=== PATIENT | male | born 1955 | race Hispanic/Latino ===

== ENCOUNTER 2018-07-10 10:19 | Emergency (ER) | payer MEDICARE, MEDICAID ==
[2018-07-10 10:31] VITALS: TEMP 98.7
[2018-07-10] MEDS ORDERED: Sodium Chloride 0.9% 500 ML IV STA (11:38)
[2018-07-10] MEDS ORDERED: Sodium Chloride 0.9% 500 ML IV ONE (11:53)
[2018-07-10 12:20] LABS: BASO % 0.5 % (0.0-2.0); EOS % 0.4 % (0.0-4.0); HEMOGLOBIN 17.4 g/dL (12.0-18.0); LYMPH # 1.6 K/uL (1.0-4.3); LYMPH % 21.4 % (20.0-40.0); MEAN CELL VOLUME 89.1 fL (80.0-94.0); MEAN CORPUSCULAR HEMOGLOBIN 31.9 pg (27.0-31.0); MEAN CORPUSCULAR HGB CONC 35.8 g/dL (33.0-37.0); MEAN PLATELET VOLUME 7.1 fL (7.2-11.7); MONO # 0.6 K/uL (0.0-0.8); MONO % 8.8 % (0.0-10.0); NEUT % 68.9 % (50.0-75.0); NRBC % 0.3 % (0.0-2.0); RBC 5.47 Mil/uL (4.40-5.90); RED CELL DISTRIBUTION WIDTH 12.9 % (11.5-14.5); WHITE BLOOD COUNT 7.3 K/uL (4.8-10.8)
[2018-07-10 12:21] LABS: URINE BILIRUBIN NEGATIVE (NEGATIVE); URINE BLOOD NEGATIVE (NEGATIVE); URINE CLARITY Clear (Clear); URINE COLOR Yellow (YELLOW); URINE GLUCOSE (UA) 2+ mg/dL (Normal); URINE LEUKOCYTE ESTERASE NEG Leu/uL (Negative); URINE PROTEIN NEGATIVE (NEGATIVE); URINE UROBILINOGEN NORMAL mg/dL (0.2-1.0)
[2018-07-10 12:28] LABS: INR 1.1; PARTIAL THROMBOPLASTIN TIME 30.1 SECONDS (21-34); PROTHROMBIN TIME 11.6 SECONDS (9.7-12.2)
[2018-07-10 12:30] LABS: ALB/GLOB RATIO 1.3 (1.0-2.1); ALBUMIN 4.5 g/dL (3.5-5.0); ALT/SGPT 29 U/L (21-72); AST/SGOT 39 U/L (17-59); BLOOD UREA NITROGEN 15 mg/dL (9-20); CALCIUM 10.3 mg/dl (8.6-10.4); GFR NON-AFRICAN AMERICAN > 60
[2018-07-10 12:42] LABS: CK-MB 6.31 ng/mL (0.0-3.38)
--- NOTE | 2018-07-10 15:07 | CT ---
Date of service: 07/10/2018 PROCEDURE: CT SINUSES WITHOUT CONTRAST HISTORY: pressure COMPARISON: None available. TECHNIQUE: Contiguous axial CT images of the paranasal sinuses were obtained. Coronal and sagittal reformats were generated. Radiation dose: Total exam DLP = 508.25 mGy-cm. This CT exam was performed using one or more of the following dose reduction techniques: Automated exposure control, adjustment of the mA and/or kV according to patient size, and/or use of iterative reconstruction technique. FINDINGS: FRONTAL SINUSES: Slightly mucosal thickening of the right frontal sinus is noted. ETHMOID SINUSES: Mild mucosal thickening of the ethmoid air cells is noted. SPHENOID SINUSES: Clear. MAXILLARY SINUSES: Mild mucosal thickening noted in the maxillary sinuses right more than left. SINUS DRAINAGE: Osteomeatal complexes, frontal recesses and sphenoethmoid recesses clear. NASAL SEPTUM: Nasal septum deviation to the right is noted. MASS: None. SKULL BASE: Unremarkable. TEMPORAL BONES: Middle ears and mastoid grossly unremarkable. OTHER FINDINGS: None. IMPRESSION: Mild mucosal thickening noted in the ethmoid maxillary and right frontal sinuses. No evidence of air-fluid level. [id number] nasal septum deviation to the right.
--- NOTE | 2018-07-10 15:14 | CT ---
Date of service: 07/10/2018 PROCEDURE: CT NECK WITHOUT CONTRAST HISTORY: FB sensation, makes him SOB COMPARISON: None available. TECHNIQUE: CT of the neck without intravenous contrast. Coronal and sagittal reformats generated. Radiation dose: Total exam DLP = 529.49 mGy-cm. This CT exam was performed using one or more of the following dose reduction techniques: Automated exposure control, adjustment of the mA and/or kV according to patient size, and/or use of iterative reconstruction technique. FINDINGS: NASOPHARYNX: There is moderate thickening of the nasopharynx posterior wall. SUPRAHYOID NECK: There is diffuse soft tissue swelling noted in the oropharynx associated with severe narrowing/obstruction of the upper airway up to the level of the thyroid cartilage. INFRAHYOID NECK: Narrowing of the airway at the level of the larynx is also noted. The infrahyoid portion of the airway below the larynx is patent. MASS: Cannot exclude mass in this noncontrast study. GLANDS: Parotid and submandibular glands unremarkable. Normal size thyroid gland, without nodule. LYMPH NODES: Normal. No lymphadenopathy. CERVICAL SPINE: No fracture or focal lesion. OTHER FINDINGS: None. IMPRESSION: Diffuse soft tissue swelling in the oropharynx extending to the level of the larynx associated with severe stenosis and occlusion of the upper airway of uncertain etiology. No definite evidence of discrete mass lesion in this noncontrast study.
[2018-07-10 15:23] VITALS: BP 129/81; PULSE 70; RESP 21; O2SAT 100
--- NOTE | 2018-07-10 15:54 | C.PDOC ---
History Of Present Illness 63-year-old male presents to the ED for evaluation, stating he has been anxious and has been "snorting like a pig" since yesterday. Patient reports some nasal and sinus pressure. He also states he feels like there is something in his throat, describing a foreign-body like sensation. Patient states this is causing him to feel short of breath, and presents to the ED for further evaluation. He denies fever, chills. Time Seen by Provider: 07/10/18 10:44 Chief Complaint (Nursing): ENT Problem History Per: Patient History/Exam Limitations: None Onset/Duration Of Symptoms: Days Current Symptoms Are (Timing): Still Present Past Medical History Reviewed: Historical Data, Nursing Documentation, Vital Signs Vital Signs: Last Vital Signs Temp 98.7 F 07/10/18 10:28 Pulse 70 07/10/18 15:22 Resp 21 07/10/18 15:22 BP 129/81 07/10/18 15:22 Pulse Ox 100 07/10/18 15:22 Primary Care Provider: Non [facility] Provider, - Medical History PMH: HTN Surgical History: No Surg Hx Family History: States: Unknown Family Hx - Social History Hx Tobacco Use: No Hx Alcohol Use: Yes Hx Substance Use: No - Immunization History Hx Tetanus Toxoid Vaccination: No Hx Influenza Vaccination: No Hx Pneumococcal Vaccination: No Review Of Systems Respiratory: Positive for: Shortness of Breath Psych: Positive for: Anxiety Physical Exam - Physical Exam Appears: Non-toxic, No Acute Distress Skin: Normal Color, Warm, Dry Head: Atraumatic, Normacephalic Eye(s): bilateral: Normal Inspection Ear(s): Bilateral: Normal Nose: Normal, No Discharge Oral Mucosa: Moist Throat: Normal, No Erythema, No Exudate Neck: Supple Chest: Symmetrical, No Deformity, No Tenderness Cardiovascular: Rhythm Regular, No Murmur Respiratory: Normal Breath Sounds, No Rales, No Rhonchi, No Wheezing Extremity: Normal ROM, Capillary Refill (less than 2 seconds ) Neurological/Psych: Oriented x3, Normal Speech, Normal Cognition ED Course And Treatment - Laboratory Results Result Diagrams: 07/10/18 12:12 07/10/18 12:12 Lab Results: PT 11.6 SECONDS (9.7-12.2) 07/10/18 12:12 INR 1.1 07/10/18 12:12 APTT 30.1 SECONDS (21-34) 07/10/18 12:12 Troponin I < 0.0120 ng/mL (0.00-0.120) 07/10/18 12:12 Total Bilirubin 1.4 mg/dL (0.2-1.3) H 07/10/18 12:12 AST 39 U/L (17-59) 07/10/18 12:12 ALT 29 U/L (21-72) 07/10/18 12:12 Alkaline Phosphatase 60 U/L (38-126) 07/10/18 12:12 Total Protein 8.1 g/dL (6.3-8.3) 07/10/18 12:12 Albumin 4.5 g/dL (3.5-5.0) 07/10/18 12:12 Globulin 3.6 gm/dL (2.2-3.9) 07/10/18 12:12 Albumin/Globulin Ratio 1.3 (1.0-2.1) 07/10/18 12:12 Urine Color Yellow (YELLOW) 07/10/18 12:12 Urine Clarity Clear (Clear) 07/10/18 12:12 Urine pH 5.0 (5.0-8.0) 07/10/18 12:12 Ur Specific Rosamond 1.013 (1.003-1.030) 07/10/18 12:12 Urine Protein Negative mg/dL (NEGATIVE) 07/10/18 12:12 Urine Glucose (UA) 2+ mg/dL (Normal) H 07/10/18 12:12 Urine Ketones Trace mg/dL (NEGATIVE) 07/10/18 12:12 Urine Blood Negative (NEGATIVE) 07/10/18 12:12 Urine Nitrate Negative (NEGATIVE) 07/10/18 12:12 Urine Bilirubin Negative (NEGATIVE) 07/10/18 12:12 Urine Urobilinogen Normal mg/dL (0.2-1.0) 07/10/18 12:12 Ur Leukocyte Esterase Neg Regla/uL (Negative) 07/10/18 12:12 Urine WBC (Auto) < 1 /hpf (0-5) 07/10/18 12:12 Urine RBC (Auto) < 1 /hpf (0-3) 07/10/18 12:12 ECG: Interpreted By Me, Viewed By Me ECG Rhythm: Sinus Rhythm Interpretation Of ECG: Normal Sinus Rhythm at rate 73bpm. Old Q waves in the anterior lead. Rate From EC O2 Sat by Pulse Oximetry: 100 (on RA ) Pulse Ox Interpretation: Normal - CT Scan/US CT Neck Soft Tissue Other Rad Studies (CT/US): Read By Radiologist, Radiology Report Reviewed CT/US Interpretation: Date of service: 07/10/2018. PROCEDURE: CT NECK WITHOUT CONTRAST. HISTORY: FB sensation, makes him SOB. COMPARISON: None available. TECHNIQUE: CT of the neck without intravenous contrast. Coronal and sagittal reformats generated. Radiation dose: Total exam DLP = 529.49 mGy-cm. This CT exam was performed using one or more of the following dose reduction techniques: Automated exposure control, adjustment of the mA and/or kV according to patient size, and/or use of iterative reconstruction technique. FINDINGS: NASOPHARYNX: There is moderate thickening of the nasopharynx posterior wall. SUPRAHYOID NECK: There is diffuse soft tissue swelling noted in the oropharynx associated with severe narrowing/obstruction of the upper airway up to the level of the thyroid cartilage. INFRAHYOID NECK: Narrowing of the airway at the level of the larynx is also noted. The infrahyoid portion of the airway below the larynx is patent. MASS: Cannot exclude mass in this noncontrast study. GLANDS: Parotid and submandibular glands unremarkable. Normal size thyroid gland, without nodule. LYMPH NODES: Normal. No lymphadenopathy. CERVICAL SPINE: No fracture or focal lesion. OTHER FINDINGS: None. IMPRESSION: Diffuse soft tissue swelling in the oropharynx extending to the level of the larynx associated with severe stenosis and occlusion of the upper airway of uncertain etiology. No definite evidence of discrete mass lesion in this noncontrast study. CT Sinuses Other Rad Studies (CT/US): Read By Radiologist, Radiology Report Reviewed CT/US Interpretation: Date of service: 07/10/2018. PROCEDURE: CT SINUSES WITHOUT CONTRAST. HISTORY: pressure. COMPARISON: None available. TECHNIQUE: Contiguous axial CT images of the paranasal sinuses were obtained. Coronal and sagittal reformats were generated. Radiation dose: Total exam DLP = 508.25 mGy-cm. This CT exam was performed using one or more of the following dose reduction techniques: Automated exposure control, adjustment of the mA and/or kV according to patient size, and/or use of iterative reconstruction technique. FINDINGS: FRONTAL SINUSES: Slightly mucosal thickening of the right frontal sinus is noted. ETHMOID SINUSES: Mild mucosal thickening of the ethmoid air cells is noted. SPHENOID SINUSES: Clear. MAXILLARY SINUSES: Mild mucosal thickening noted in the maxillary sinuses right more than left. SINUS DRAINAGE: Osteomeatal complexes, frontal recesses and sphenoethmoid recesses clear. NASAL SEPTUM: Nasal septum deviation to the right is noted. MASS: None. SKULL BASE: Unremarkable. TEMPORAL BONES: Middle ears and mastoid grossly unremarkable. OTHER FINDINGS: None. IMPRESSION: Mild mucosal thickening noted in the ethmoid maxillary and right frontal sinuses. No evidence of air- fluid level. [id number] nasal septum deviation to the right. Medical Decision Making Medical Decision Making: Bloodwork, urinalysis, CXR, EKG ordered and reviewed. Valium given for possible spasm and to calm patients anxiety. IV Fluids administered. On re-examination, patient appears calmer than previously, but still appears to be snorting. CT Sinuses and CT Neck Soft Tissue ordered. CT study shows narrowing of airway. Upon further questioning, patient states that his symptoms did not begin yesterday but had been ongoing for a while. Patient states his symptoms are worse when lying down, and he presented to the ED today because he was afraid to fall asleep. 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 The patient declines admission to the hospital and wishes to leave the Emergency Department. This action is against my medical advice. This decision was made with informed refusal. The patient was told that admission to the hospital is necessary. Explanation of the reasons why were discussed. The risks of leaving were explained to the patient and include, but are not limi nydia to, worsening of known or currently unknown conditions, permanent disability and from undiagnosed or untreated conditions. The patient has the capacity to make this informed decision and understands my explanation of the current medical problem and risks of leaving. The patient voluntarily accepts these risks and signed an AMA form documenting our conversation. The patient was given the opportunity to ask questions and reconsider. The patient was encouraged to return to the Emergency Department at any time for further care. Disposition - Disposition Referrals: Hernan Hurtado MD [Staff Provider] - Disposition: AGAINST MEDICAL ADVICE Disposition Time: 15:52 Condition: STABLE Additional Instructions: Return in ED for an admission if you change your mind. Return to ED immediately if feel worse. 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 - Scribe Statement The provider has reviewed the documentation as recorded by the Scribe (Riana Wren) All medical record entries made by the Scribe were at my direction and pers onally dictated by me. I have reviewed the chart and agree that the record accurately reflects my personal performance of the history, physical exam, medical decision making, and the department course for this patient. I have also personally directed, reviewed, and agree with the discharge instructions and disposition.
--- NOTE | 2018-07-10 17:46 | RAD ---
Date of service: 07/10/2018 PROCEDURE: CHEST RADIOGRAPH, 1 VIEW HISTORY: uncomfortable throat, makes him sob COMPARISON: None available. FINDINGS: LUNGS: Clear. PLEURA: No pneumothorax or pleural fluid seen. CARDIOVASCULAR: No aortic atherosclerotic calcification present. Normal. OSSEOUS STRUCTURES: No significant abnormalities. VISUALIZED UPPER ABDOMEN: Normal. OTHER FINDINGS: None. IMPRESSION: No active disease.
--- NOTE | 2018-07-13 07:39 | CARD ---
APPROVED REPORT Date of service: 07/10/2018 EKG Measurement Heart [id number] <Conclusion> Normal sinus rhythm Cannot rule out Anterior infarct, age undetermined Abnormal ECG
== END 2018-07-10 16:00 | disposition left against medical advice (07) ==
LOC: C.ER 10:19
DX: J39.2 Other diseases of pharynx (principal); I10 Essential (primary) hypertension
CPT/HCPCS: 70486; 70490; 71045; 80053; 81001; 82550; 82553; 84484; 85025; 85610; 85730; 99285; J7040

== ENCOUNTER 2018-07-12 20:29 | Inpatient (IN) | payer MEDICARE, MEDICAID ==
--- NOTE | 2018-07-12 21:33 | C.PDOC ---
History Of Present Illness 63 year old male returns to ER for admission. Patient is s/p eval on 07/10/18 for worsening choking episodes for the past several months present for one year. CT report showed positive upper airway stenosis. Patient states he was unable to stay for admission previously due to familial obligations but is now willing to stay. Denies new symptoms since initial eval. Patient states "it gets so bad I feels like I am choking", worse at night. Patient smokes cigars twice a month, drinks 12 pack of beer daily. PT RETURN TO ER FOR ADMISSION. S/P EVAL 07/10 FOR WORSENING CHOKING EPISODES X SEV MONTHS, PRESENT X [address] REPORT +UPPER AIRWAY STENOSIS. PS UNABLE TO STAY FOR ADMISSION PREVIOUSLY DUE TO FAMILIAL OBLIGATIONS BUT NOW WILLING TO STAY. DENIES NEW SX SINCE INITIAL EVAL. PS "IT GETS SO BAD I FEEL LIKE I AM CHOKING". WORSE @ NIGHT. PS STATES SMOKES CIGARS 2X/MO, DRINKS 12 PACK OF BEER DAILY. 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 Time Seen by Provider: 07/12/18 21:03 Chief Complaint (Nursing): Shortness Of Breath History Per: Patient History/Exam Limitations: no limitations Onset/Duration Of Symptoms: Days, Intermittent Episodes Current Symptoms Are (Timing): Still Present Recent travel outside of the [place]: No Past Medical History Reviewed: Historical Data, Nursing Documentation, Vital Signs Vital Signs: Last Vital Signs Temp 97.9 F 07/12/18 20:47 Pulse 94 H 07/12/18 20:53 Resp 19 07/12/18 20:53 BP 157/119 H 07/12/18 20:47 Pulse Ox 93 L 07/12/18 20:53 Primary Care Provider: Clinic,Med Surg - Medical History PMH: HTN Family History: States: Unknown Family Hx - Social History Hx Tobacco Use: No Hx Alcohol Use: Yes Hx Substance Use: No - Immunization History Hx Tetanus Toxoid Vaccination: No Hx Influenza Vaccination: No Hx Pneumococcal Vaccination: No Review Of Systems Except As Marked, All Systems Reviewed And Found Negative. ENT: Positive for: Other (Choking episodes) Respiratory: Negative for: Cough, Shortness of Breath Physical Exam - Physical Exam Appears: Non-toxic, No Acute Distress, Other (Occasional "snorting") Skin: Normal Color, Warm Head: Atraumatic, Normacephalic Eye(s): bilateral: Normal Inspection Oral Mucosa: Moist, No Drooling Throat: Normal, No Other (Swelling) Neck: Normal, Supple Chest: Symmetrical, No Tenderness Cardiovascular: Rhythm Regular Respiratory: Normal Breath Sounds, No Accessory Muscle Use, No Rales, No Rhonchi, No Stridor, No Wheezing, Other (Speaking in complete sentences without difficulty) Gastrointestinal/Abdominal: Soft, No Tenderness Neurological/Psych: Oriented x3, Normal Speech, Other (Calm, cooperative) ED Course And Treatment - Laboratory Results Result Diagrams: 07/12/18 22:45 ECG: Interpreted By Me ECG Interpretation: Normal Rate From EC O2 Sat by Pulse Oximetry: 93 Pulse Ox Interpretation: Abnormal - Radiology CXR: Interpreted by Me CXR Interpretation: Yes: No Acute Disease Progress - Re-Evaluation Re-evaluation Note: 07/12/18 21:30 D/W DR DADA MESA STAFF DEVELOPER WILL ADMIT D/W DR VILLARREAL WILL EVAL 07/12/18 22:20 ACCEPTED FOR ICU. - Data Reviewed Data Reviewed: Lab, Diagnostic imaging, EKG, Old records Disposition Counseled Patient/Family Regarding: Studies Performed, Diagnosis - Disposition Disposition: HOSPITALIZED Disposition Time: 22:23 Condition: SERIOUS - POA Present On Arrival: Poor Glycemic Control - Clinical Impression Clinical Impression: Narrowing of airway, Alcohol dependence - Scribe Statement The provider has reviewed the documentation as recorded by the Scribbernardo Bella All medical record entries made by the Scribe were at my direction and personally dictated by me. I have reviewed the chart and agree that the record accurately reflects my personal performance of the history, physical exam, medical decision making, and the department course for this patient. I have also personally directed, reviewed, and agree with the discharge instructions and disposition.
[2018-07-12] MEDS ORDERED: Labetalol 25mg/5ml Syringe IVP STA (21:36)
--- NOTE | 2018-07-12 22:45 | CP.PCM.HP ---
History of Present Illness - History of Present Illness History of Present Illness: 63 M returns to ER for admission for upper airway stenosis previously seen on CT. Patient is s/p eval on 07/10/18 for worsening choking episodes for the past several months present for one year. CT report showed positive upper airway s tenosis. At that time he left [facility] because of family obligations. Denies new symptoms since initial eval. Patient states "it gets so bad I feels like I am choking", worse at night, says he "constantly snorts like a pig" and reports sensation of foreign body. Patient smokes cigars twice a month, drinks 12 pack of beer daily. PMHx:HTN, DM PSx: Denies FH: Denies SocHx: Smoker, Heavy ETOH, denies drug use Allergies: denies Home Rx: none Present on Admission - Present on Admission Any Indicators Present on Admission: No Review of Systems - Review of Systems All systems: reviewed and no additional remarkable complaints except (as per HPI) Past Patient History - Infectious Disease Hx of Infectious Diseases: None - Past Social History Smoking Status: Never Smoked - CARDIAC Hx Hypertension: Yes - PSYCHIATRIC Hx Substance Use: No - SURGICAL HISTORY Hx Surgeries: No - ANESTHESIA Hx Anesthesia: No Meds Allergies/Adverse Reactions: Allergies Allergy/AdvReac Type Severity Reaction Status Date / Time No Known Allergies Allergy Verified 07/12/18 20:56 Physical Exam - Constitutional Appears: Non-toxic, No Acute Distress - Head Exam Head Exam: ATRAUMATIC, NORMOCEPHALIC - Eye Exam Eye Exam: EOMI, PERRL. absent: Scleral icterus - ENT Exam ENT Exam: Mucous Membranes Moist - Respiratory Exam Respiratory Exam: Wheezes (jagdish upper) - Cardiovascular Exam Cardiovascular Exam: RRR, +S1, +S2 - GI/Abdominal Exam GI & Abdominal Exam: Soft. absent: Tenderness - Neurological Exam Neurological exam: Alert, CN II-XII Intact, Oriented x3 - Psychiatric Exam Psychiatric exam: Normal Affect, Normal Mood - Skin Skin Exam: Normal Color, Warm Results - Vital Signs Recent Vital Signs: Last Vital Signs Temp 97.9 F 07/12/18 20:47 Pulse 96 H 07/12/18 21:38 Resp 20 07/12/18 21:38 BP 150/90 07/12/18 21:38 Pulse Ox 93 L 07/12/18 22:24 - Labs Result Diagrams: 07/12/18 22:45 07/12/18 22:45 Assessment & Plan - Assessment and Plan (Free Text) Assessment: Upper Airway Stenosis CT shows signs of significant airway narrowing ENT Dr Hurtado Consulted f/u recs Decadron 10 IVP ISS for reactive hyperglycemia f/u Echo ETOH Abuse Librium and Ativan Taper Thiamine, Multivit, Folate Neurochecks CIWA Protocol DM f/u A1C ISS HTN Labetalol 20 given once in ED monitor PPx NPO except meds Aspiration precautions Holding anticoag for possible sx intervention SCDs DISPO: pending ENT eval, advance diet if OK'd, may need elective trach CK PGY1
[2018-07-12 22:51] LABS: BASO # 0.1 K/uL (0.0-0.2); BASO % 0.9 % (0.0-2.0); EOS % 0.6 % (0.0-4.0); HEMOGLOBIN 16.5 g/dL (12.0-18.0); LYMPH # 2.5 K/uL (1.0-4.3); LYMPH % 41.8 % (20.0-40.0); MEAN CELL VOLUME 89.7 fL (80.0-94.0); MEAN CORPUSCULAR HEMOGLOBIN 31.8 pg (27.0-31.0); MEAN CORPUSCULAR HGB CONC 35.4 g/dL (33.0-37.0); MEAN PLATELET VOLUME 6.7 fL (7.2-11.7); MONO # 0.6 K/uL (0.0-0.8); MONO % 9.3 % (0.0-10.0); NEUT # 2.8 K/uL (1.8-7.0); NEUT % 47.4 % (50.0-75.0); RBC 5.2 Mil/uL (4.40-5.90); RED CELL DISTRIBUTION WIDTH 12.8 % (11.5-14.5)
[2018-07-12 22:59] LABS: INR 1.1; PARTIAL THROMBOPLASTIN TIME 30.3 SECONDS (21-34); PROTHROMBIN TIME 11.5 SECONDS (9.7-12.2)
[2018-07-12] MEDS ORDERED: Dextrose 50% SYRINGE Inj (50 ml) IV PRN (23:08)
[2018-07-12] MEDS ORDERED: Glucagon Recombinant 1 mg Inj IM PRN (23:08)
[2018-07-12 23:12] LABS: ALB/GLOB RATIO 1.3 (1.0-2.1); ALBUMIN 4.6 g/dL (3.5-5.0); ALT/SGPT 26 U/L (21-72); AST/SGOT 43 U/L (17-59); BLOOD UREA NITROGEN 11 mg/dL (9-20); CALCIUM 9.7 mg/dl (8.6-10.4); GFR NON-AFRICAN AMERICAN > 60
[2018-07-12] MEDS ORDERED: Dexamethasone 4 mg/1 ml IVP ONE (23:12)
--- NOTE | 2018-07-12 23:56 | CP.PCM.CON ---
History of Present Illness - History of Present Illness History of Present Illness: 63 M with h/o HTN, second visit in ER for c/o episodes of SOB which is preceded by snorting, and has gone worse in last few months. Patient was evaluated on 07/[address] of nect and sinuses and was found to have above the larynx signif icant stenosis, he didn't stay in the hospital as he had some obligation but then came back today for f/u and wanted to stay this time. Patient upon asking mentioned he drinks daily about 12 24 oz beers, and had 6 prior to coming to the hospital. Also mentions he has to sleep in the side to breath and time to time has to go our to take fresh air. In the recent labs was also noticed to be hyperglycemic. 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, lives with mother Meds has htn med but doesn't take Review of Systems - Review of Systems All systems: reviewed and no additional remarkable complaints except Past Patient History - Infectious Disease Hx of Infectious Diseases: None - Past Social History Smoking Status: Never Smoked Alcohol: > 2 Drinks/Day Drugs: Denies Home Situation {Lives}: With Family Domestic Violence: Negative - CARDIAC Hx Hypertension: Yes - PSYCHIATRIC Hx Substance Use: No - SURGICAL HISTORY Hx Surgeries: No - ANESTHESIA Hx Anesthesia: No Meds Allergies/Adverse Reactions: Allergies Allergy/AdvReac Type Severity Reaction Status Date / Time No Known Allergies Allergy Verified 07/12/18 20:56 - Medications Medications: Current Medications Chlordiazepoxide (Librium) 25 mg PO Q8 KHUSHI Dextrose (Dextrose 50% Inj) 0 ml IV STAT PRN; Protocol PRN Reason: Hypoglycemia Protocol Dextrose (Glutose 15) 0 gm PO ONCE PRN; Protocol PRN Reason: Hypoglycemia Protocol Folic Acid (Folic Acid) 1 mg PO DAILY KHUSHI Glucagon (Glucagen Diagnostic Kit) 0 mg IM STAT PRN; Protocol PRN Reason: Hypoglycemia Protocol Dextrose (Dextrose 5% In Water 1000 Ml) 1,000 mls @ 0 mls/hr IV .Q0M PRN; Protocol PRN Reason: Hypoglycemia Protocol Insulin Human Regular (Novolin R) 0 unit SC ACHS KHUSHI; Protocol Lorazepam (Ativan) 0.5 mg IVP Q6H PRN PRN Reason: Anxiety Multivitamins/Vitamin C (Multi-Delyn Liquid) 5 ml PO DAILY KHUSHI Thiamine HCl (Vitamin B1 Tab) 100 mg PO DAILY KHUSHI Physical Exam - Additional Findings Additional findings: * HEENT REAL * Neck Supple, no stridor * CVS regular, no gallop or rub * Chest reduced breath sound all the zones. * PA soft, nt bs present * Ext no edema * Skin normal turgor * RELIGIOUS ASSISTANT awake oriented x3 no fnd Results - Vital Signs Recent Vital Signs: Last Vital Signs Temp 98.1 F 07/12/18 22:45 Pulse 88 07/12/18 22:45 Resp 16 07/12/18 22:45 BP 131/90 07/12/18 22:45 Pulse Ox 93 L 07/12/18 23:02 - Labs Result Diagrams: 07/12/18 22:45 07/12/18 22:45 Labs: Laboratory Results - last 24 hr 07/12/18 07/12/18 07/12/18 22:45 22:45 22:45 WBC 6.0 RBC 5.20 Hgb 16.5 Hct 46.7 MCV 89.7 MCH 31.8 H MCHC 35.4 RDW 12.8 Plt Count 162 MPV 6.7 L Neut % (Auto) 47.4 L Lymph % (Auto) 41.8 H [place] % (Auto) 9.3 Eos % (Auto) 0.6 Baso % (Auto) 0.9 Neut # (Auto) 2.8 Lymph # (Auto) 2.5 [place] # (Auto) 0.6 Eos # (Auto) 0.0 Baso # (Auto) 0.1 PT 11.5 INR 1.1 APTT 30.3 Sodium 135 Potassium 3.5 L Chloride 98 Carbon Dioxide 21 L Anion Gap 20 BUN 11 Creatinine 0.7 L Est GFR ( Amer) > 60 Est GFR (Non-Af Amer) > 60 Random Glucose 237 H Calcium 9.7 Total Bilirubin 0.7 AST 43 ALT 26 Alkaline Phosphatase 52 Total Protein 8.2 Albumin 4.6 Globulin 3.6 Albumin/Globulin Ratio 1.3 Alcohol, Quantitative 07/12/18 22:45 WBC RBC Hgb Hct MCV MCH MCHC RDW Plt Count MPV Neut % (Auto) Lymph % (Auto) [place] % (Auto) Eos % (Auto) Baso % (Auto) Neut # (Auto) Lymph # (Auto) [place] # (Auto) Eos # (Auto) Baso # (Auto) PT INR APTT Sodium Potassium Chloride Carbon Dioxide Anion Gap BUN Creatinine Est GFR ( Amer) Est GFR (Non-Af Amer) Random Glucose Calcium Total Bilirubin AST ALT Alkaline Phosphatase Total Protein Albumin Globulin Albumin/Globulin Ratio Alcohol, Quantitative 238 H Assessment & Plan - Assessment and Plan (Free Text) Assessment: * Supra laryangeal mass with stenosis * Alcohol abuse * H/o anxiety * H/o HTN * Hyperglycemia likely undiagnosed dm Plan: * NPO except meds till evaluated by ENT * Possible fibre optic eval, may need elective trache to biopsy the swelling ent consulted * Librium, prn ativan * Thiamine MVT, FA * accuchekcs with sliding scale coverage * Hemoglobin A1c * Scd * IV decadron tril to reduce the swelling. * Being observed in ICU * Counselled about alcohol cessation.
[2018-07-13] MEDS ORDERED: Potassium Chloride 20 mEq/15 ml LIQ UD PO STA (01:05)
[2018-07-13 06:33] LABS: ALB/GLOB RATIO 1.7 (1.0-2.1); ALBUMIN 4.6 g/dL (3.5-5.0); ALT/SGPT 30 U/L (21-72); AST/SGOT 50 U/L (17-59); BLOOD UREA NITROGEN 13 mg/dL (9-20); CALCIUM 9.5 mg/dl (8.6-10.4); GFR NON-AFRICAN AMERICAN > 60
[2018-07-13 06:50] LABS: BASO % 0.2 % (0.0-2.0); LYMPH # 0.7 K/uL (1.0-4.3); MEAN CELL VOLUME 90.7 fL (80.0-94.0); MEAN CORPUSCULAR HEMOGLOBIN 32.3 pg (27.0-31.0); MEAN CORPUSCULAR HGB CONC 35.6 g/dL (33.0-37.0); MEAN PLATELET VOLUME 7.3 fL (7.2-11.7); MONO # 0.1 K/uL (0.0-0.8); NEUT # 5.8 K/uL (1.8-7.0); NEUT % 87.8 % (50.0-75.0); NRBC % 0.1 % (0.0-2.0); RBC 5.16 Mil/uL (4.40-5.90); RED CELL DISTRIBUTION WIDTH 12.9 % (11.5-14.5); WHITE BLOOD COUNT 6.6 K/uL (4.8-10.8)
[2018-07-13 06:58] LABS: HEMOGLOBIN 16.7 g/dL (12.0-18.0)
[2018-07-13] MEDS ORDERED: (Novolin R) Insulin Human Regular 100 units/ml vial SC SCH (07:30)
[2018-07-13] MEDS: Multiple Vitamins Oral Solution PO SCH (09:09)
[2018-07-13 10:02] LABS: T3 1.54 nmol/L (1.49-2.60)
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
--- NOTE | 2018-07-13 10:28 | RAD ---
Chest x-ray single frontal view HISTORY: Shortness of breath. COMPARISON: 07/10/2018 FINDINGS: Mild venous congestion. Patchy increased markings at the lung bases. Enlarged ectatic aorta. Cardiomegaly. Degenerative changes in the spine and shoulders. Impression: Mild venous congestion. Patchy increased markings at the lung bases. Enlarged ectatic aorta. Cardiomegaly.
[2018-07-13] MEDS: (Novolin R) Insulin Human Regular 100 units/ml vial SC SCH ×3 (12:00→21:28)
[2018-07-13] MEDS: MethylPREDNISolone 40 mg Vial IVP SCH ×2 (13:23→22:30)
[2018-07-13] MEDS: Enoxaparin 40 mg Syringe SC SCH (13:25)
[2018-07-13 15:16] LABS: ARTERIAL BLOOD GAS HCO3 23.3 mmol/L (21-28); ARTERIAL BLOOD GAS PCO2 36 mm/Hg (35-45); ARTERIAL BLOOD GAS PH 7.38 (7.35-7.45); ARTERIAL BLOOD GAS PO2 85 mm/Hg (80-100); ARTERIAL BLOOD GAS TCO2 22.4 mmol/L (22-28)
[2018-07-13 15:17] LABS: ABG ALLEN TEST POS
--- NOTE | 2018-07-13 17:36 | CARD ---
APPROVED REPORT Date of service: 07/13/2018 EXAM: Two-dimensional and M-mode echocardiogram with Doppler and color Doppler. INDICATION mass in airway 2D DIMENSIONS IVSd0.9 (0.7-1.1cm)LVDd4.2 (3.9-5.9cm) PWd1.0 (0.7-1.1cm)LA Ifevep59 (18-58mL) LVDs2.0 (2.5-4.0cm)FS (%) 52.4 % LVEF (%)83.8 (>50%)LVEF (Queen's)65.23 % M-Mode DIMENSIONS Left Atrium (MM)3.77 (2.5-4.0cm)IVSd0.96 (0.7-1.1cm) Aortic Root3.05 (2.2-3.7cm)LVDd4.73 (4.0-5.6cm) Aortic Cusp Exc.2.25 (1.5-2.0cm)PWd0.79 (0.7-1.1cm) FS (%) 46 %LVDs2.57 (2.0-3.8cm) LVEF (%)77 (>50%) Mitral Valve MV E Tchbwlrw64.4cm/sMV A Hhbgcolj76.1cm/sE/A ratio0.7 TDI Lateral E' Peak V9.19cm/sMedial E' Peak V5.71cm/sE/Lateral E'5.7 E/Medial E'9.2 Tricuspid Valve TR Peak [id number]/sTR Peak Gr.[id number] LEFT VENTRICLE The left ventricle is normal size. There is normal left ventricular wall thickness. The left ventricular function is normal. The left ventricular ejection fraction is within the normal range. There is normal LV segmental wall motion. Transmitral Doppler flow pattern is abnormal. RIGHT VENTRICLE The right ventricle is normal size. ATRIA The left atrium size is normal. The right atrium size is normal. AORTIC VALVE The aortic valve is normal in structure. MITRAL VALVE The mitral valve is normal in structure. TRICUSPID VALVE There is trace tricuspid regurgitation. <Conclusion> Normal LV systolic function. Diastolic dysfunction. Normal chamber size. Trace TR.
--- NOTE | 2018-07-13 22:11 | OP ---
PROCEDURE DATE: 07/13/2018 PROCEDURE: Flexible laryngoscopy. SIGNIFICANT FINDINGS: No masses or lesions noted. Airway obstruction not noted. DESCRIPTION OF PROCEDURE: The patient was placed in seated position. The nose was decongested using Afrin. Flexible laryngoscope was inserted into the nasal cavity, passed through the nasopharynx, oropharynx, and hypopharynx. The pharyngeal lara, base of tongue, vallecula, epiglottis, AE folds, false cords, true cords, arytenoids, piriform sinuses were brought into view. No masses or lesions were noted. No erythema or edema was noted. Airway was normal and patent. The scope was removed. The patient tolerated the procedure well. Hernan Hurtado MD
[2018-07-13] MEDS: (Lantus) Insulin Glargine, Recombinant SC SCH (22:30)
[2018-07-14 07:04] LABS: BASO # 0.1 K/uL (0.0-0.2); BASO % 1.1 % (0.0-2.0); LYMPH # 1.1 K/uL (1.0-4.3); MEAN CORPUSCULAR HEMOGLOBIN 32.4 pg (27.0-31.0); MEAN CORPUSCULAR HGB CONC 35.9 g/dL (33.0-37.0); MONO # 0.3 K/uL (0.0-0.8); MONO % 2.8 % (0.0-10.0); NEUT # 7.5 K/uL (1.8-7.0); NEUT % 84.1 % (50.0-75.0); NRBC % 0.1 % (0.0-2.0); RBC 4.94 Mil/uL (4.40-5.90)
[2018-07-14 07:05] LABS: ALB/GLOB RATIO 1.5 (1.0-2.1); ALBUMIN 4.5 g/dL (3.5-5.0); ALT/SGPT 12 U/L (21-72); AST/SGOT 76 U/L (17-59); BLOOD UREA NITROGEN 23 mg/dL (9-20); GFR NON-AFRICAN AMERICAN > 60
[2018-07-14] MEDS: (Novolin R) Insulin Human Regular 100 units/ml vial SC SCH ×5 (08:27→22:52)
[2018-07-14] MEDS ORDERED: Albuterol-Ipratrop 3 mg / 0.5 (3 ml) UD INH PRN (10:00)
[2018-07-14] MEDS: Multiple Vitamins Oral Solution PO SCH (10:05)
[2018-07-14] MEDS: Enoxaparin 40 mg Syringe SC SCH (10:05)
--- NOTE | 2018-07-14 10:31 | CP.CCUPN ---
<Libertad Waite - Last Filed: 07/14/18 10:35> CCU Subjective - Physician Review Subjective (Free Text): ICU PROGRESS NOTE FOR DR. THOMAS WAITE PGY1 Pt seen and examined at bedside this am. No acute events overnight. Pt reports SOB and "snorting like a pig" when trying to sleep. He otherwise denies complaints CCU Objective - Vital Signs / Intake & Output Vital Signs (Last 4 hours): Vital Signs Temp Pulse Resp BP Pulse Ox 07/14/18 09:00 99 H 15 95 07/14/18 08:23 86 14 120/66 89 L 07/14/18 08:00 97.6 F 78 18 94 L 07/14/18 07:23 74 20 135/92 H 07/14/18 07:00 91 H 17 Intake and Output (Last 8hrs): Intake & Output 07/13/18 07/14/18 07/14/18 22:59 06:59 14:59 Intake Total 460 220 Output Total 850 600 500 Balance -390 -600 -280 Weight 78.29 kg Intake: Oral 460 220 Output: Urine 850 600 500 Urine, Voided 850 600 500 Emesis 0 0 0 Other: # Voids Urine, Voided 1 1 # Bowel Movements 0 0 0 - Physical Exam Pupils: Positive for: PERRL Extroacular Muscles: Positive for: EOMI Conjunctiva: Positive for: Normal Mouth: Positive for: Moist Mucous Membranes Neck: Positive for: Normal Range of Motion Respiratory/Chest: Positive for: Wheezes Cardiovascular: Positive for: Regular Rate and Rhythm, Normal S1, S2 Abdomen: Negative for: Tenderness Upper Extremity: Positive for: Normal Inspection Lower Extremity: Positive for: Normal Inspection Neurological: Positive for: GCS=15 Skin: Positive for: Warm, Dry Psychiatric: Positive for: Alert, Oriented x 3 - Medications Active Medications: Active Medications Generic Name Dose Route Start Last Admin Trade Name Freq PRN Reason Stop Dose Admin Albuterol/Ipratropium 3 ml 07/14/18 10:00 Duoneb 3 Mg/0.5 Mg (3 Ml) Ud INH RQ4 PRN Shortness of Breath Chlordiazepoxide 25 mg 07/12/18 23:15 07/13/18 21:17 Librium PO 25 mg Q8 KHUSHI Administration Dextrose 0 ml 07/12/18 23:08 Dextrose 50% Inj IV STAT PRN Hypoglycemia Protocol Protocol Dextrose 0 gm 07/12/18 23:08 Glutose 15 PO ONCE PRN Hypoglycemia Protocol Protocol Enoxaparin Sodium 40 mg 07/13/18 10:00 07/14/18 10:05 Lovenox SC 40 mg DAILY KHUSHI Administration Fluticasone/Vilanterol 1 puff 07/15/18 08:00 Breo Ellipta 100-25 Mcg Inh INH RQD KHUSHI Folic Acid 1 mg 07/13/18 10:00 07/14/18 10:04 Folic Acid PO 1 mg DAILY KHUSHI Administration Glucagon 0 mg 07/12/18 23:08 Glucagen Diagnostic Kit IM STAT PRN Hypoglycemia Protocol Protocol Dextrose 1,000 mls @ 0 mls/hr 07/12/18 23:08 Dextrose 5% In Water 1000 Ml IV .Q0M PRN Hypoglycemia Protocol Protocol Per Protocol Insulin Glargine 10 unit 07/13/18 22:00 07/13/18 22:30 Lantus SC 10 units HS KHUSHI Administration Insulin Human Regular 0 unit 07/13/18 11:30 07/14/18 08:27 Novolin R SC 8 u ACHS KHUSHI Administration Protocol Loratadine 10 mg 07/14/18 10:00 07/14/18 10:05 Claritin PO 10 mg DAILY KHUSHI Administration Multivitamins/Vitamin C 5 ml 07/13/18 10:00 07/14/18 10:05 Multi-Delyn Liquid PO 5 ml DAILY KHUSHI Administration Pantoprazole Sodium 40 mg 07/13/18 10:00 07/14/18 10:05 Protonix Inj IVP 40 mg DAILY KHUSHI Administration Prednisone 40 mg 07/14/18 10:00 07/14/18 10:04 Prednisone Tab PO 40 mg DAILY KHUSHI Administration Thiamine HCl 100 mg 07/13/18 10:00 07/14/18 10:04 Vitamin B1 Tab PO 100 mg DAILY KHUSHI Administration - Patient Studies Lab Studies: Lab Studies 07/14/18 07/14/18 07/12/18 Range/Units 06:14 06:10 22:55 WBC 9.0 (4.8-10.8) K/uL RBC 4.94 (4.40-5.90) Mil/uL Hgb 16.0 (12.0-18.0) g/dL Hct 44.5 (35.0-51.0) % MCV 90.0 (80.0-94.0) fL MCH 32.4 H (27.0-31.0) pg MCHC 35.9 (33.0-37.0) g/dL RDW 13.0 (11.5-14.5) % Plt Count 160 (130-400) K/uL MPV 8.0 (7.2-11.7) fL Neut % (Auto) 84.1 H (50.0-75.0) % Lymph % (Auto) 12.0 L (20.0-40.0) % [place] % (Auto) 2.8 (0.0-10.0) % Eos % (Auto) 0.0 (0.0-4.0) % Baso % (Auto) 1.1 (0.0-2.0) % Neut # (Auto) 7.5 H (1.8-7.0) K/uL Lymph # (Auto) 1.1 (1.0-4.3) K/uL [place] # (Auto) 0.3 (0.0-0.8) K/uL Eos # (Auto) 0.0 (0.0-0.7) K/uL Baso # (Auto) 0.1 (0.0-0.2) K/uL Puncture Site Rra pCO2 36 (35-45) mm/Hg pO2 85 (80-100) mm/Hg HCO3 23.3 (21-28) mmol/L ABG pH 7.38 (7.35-7.45) ABG Total CO2 22.4 (22-28) mmol/L ABG Base Excess -3.3 L (-2.0-3.0) mmol/L [place] Test Pos Sodium 132 (132-148) mmol/L Potassium 5.5 H (3.6-5.2) mmol/L Chloride 95 L (98-107) mmol/L Carbon Dioxide 25 (22-30) mmol/L Anion Gap 17 (10-20) BUN 23 H (9-20) mg/dL Creatinine 0.7 L (0.8-1.5) mg/dL Est GFR ( Amer) > 60 Est GFR (Non-Af Amer) > 60 Random Glucose 302 H (75-110) mg/dL Calcium 9.0 (8.6-10.4) mg/dl Phosphorus 3.2 (2.5-4.5) mg/dL Magnesium 2.0 (1.6-2.3) mg/dL Total Bilirubin 1.6 H (0.2-1.3) mg/dL AST 76 H D (17-59) U/L ALT 12 L D (21-72) U/L Alkaline Phosphatase 48 (38-126) U/L Total Protein 7.4 (6.3-8.3) g/dL Albumin 4.5 (3.5-5.0) g/dL Globulin 2.9 (2.2-3.9) gm/dL Albumin/Globulin Ratio 1.5 (1.0-2.1) Laboratory Results - last 24 hr 07/12/18 07/14/18 07/14/18 22:55 06:10 06:14 WBC 9.0 RBC 4.94 Hgb 16.0 Hct 44.5 MCV 90.0 MCH 32.4 H MCHC 35.9 RDW 13.0 Plt Count 160 MPV 8.0 Neut % (Auto) 84.1 H Lymph % (Auto) 12.0 L [place] % (Auto) 2.8 Eos % (Auto) 0.0 Baso % (Auto) 1.1 Neut # (Auto) 7.5 H Lymph # (Auto) 1.1 [place] # (Auto) 0.3 Eos # (Auto) 0.0 Baso # (Auto) 0.1 Puncture Site Rra pCO2 36 pO2 85 HCO3 23.3 ABG pH 7.38 ABG Total CO2 22.4 ABG Base Excess -3.3 L [place] Test Pos Sodium 132 Potassium 5.5 H Chloride 95 L Carbon Dioxide 25 Anion Gap 17 BUN 23 H Creatinine 0.7 L Est GFR ( Amer) > 60 Est GFR (Non-Af Amer) > 60 Random Glucose 302 H Calcium 9.0 Phosphorus 3.2 Magnesium 2.0 Total Bilirubin 1.6 H AST 76 H D ALT 12 L D Alkaline Phosphatase 48 Total Protein 7.4 Albumin 4.5 Globulin 2.9 Albumin/Globulin Ratio 1.5 Radiology Impressions: Radiology Impressions Chest X-Ray 07/12/18 22:21 Impression: Mild venous congestion. Patchy increased markings at the lung bases. Enlarged ectatic aorta. Cardiomegaly. Fingerstick Blood Sugar Results: 335 Review of Systems - Review of Systems Review of Systems: per HPI Critical Care Progress Note - Nutrition Nutrition: Nutrition Category Date Time Status Consistent Carbohydrate [DIET] Diets 07/13/18 Lunch Active Assessment/Plan - Assessment and Plan (Free Text) Assessment: 63 y/o M with PMH HTN, DM2 presented to ED with complaints of shortness of breath for several months with recent worsening found to have 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 Pt is saturating well on room air, currently not in respiratory distress Plan: Neuro: -A&O x 3. GCS 15 ETOH withdrawal -extensive history of ETOH abuse -c/w librium 25mg Q8, thiamine, multivitamin, folic acid, CV: -No active CV disease -echocardiogram: LVEF 83%, diastolic dysfunction Pulm: CT Neck w/o contrast 07/10: Diffuse soft tissue swelling in the oropharynx extending to the level of the larynx associated with severe stenosis and occlusion of the upper airway of uncertain etiology. No definite evidence of discrete mass lesion in this noncontrast study. -Currently saturating well on RA, no acute respiratory distress -s/p laryngoscopy -transition for IV solu-medrol to po prednisone -start breo ellipta inhaler, duoneb Q4, loratidine 10qd -start CPAP at night with pressure of 8mmHG GI: -No active disease -protonix for DVT ppx /Renal: -no active disease -maintain euvolemia Endocrine: DM2 Hgb A1c: 8.35 -started lantus -c/w insulin sliding scale DVT/GI PPx: lovenox/protonix Dispo: Patient remains hemodynamically stable. Will transfer to med/surg Case reviewed with attending physician, Dr. Holger Waite PGY1 <[place]ine [place] - Last Filed: 07/15/18 16:42> CCU Objective - Vital Signs / Intake & Output Intake and Output (Last 8hrs): Intake & Output 07/15/18 07/15/18 07/15/18 06:59 14:59 22:59 Intake Total 450 Balance 450 Intake: Oral 450 Other: # Voids Urine, Voided 3 - Patient Studies Lab Studies: Microbiology Studies 07/14/18 13:32 MRSA Culture - Final Nose MRSA NOT DETECTED Lab Studies 07/15/18 07/15/18 07/15/18 Range/Units 07:15 07:15 07:10 WBC 7.7 (4.8-10.8) K/uL RBC 4.60 (4.40-5.90) Mil/uL Hgb 15.0 (12.0-18.0) g/dL Hct 42.0 (35.0-51.0) % MCV 91.3 (80.0-94.0) fL MCH 32.5 H (27.0-31.0) pg MCHC 35.6 (33.0-37.0) g/dL RDW 12.7 (11.5-14.5) % Plt Count 151 (130-400) K/uL MPV 7.4 (7.2-11.7) fL Neut % (Auto) 70.2 (50.0-75.0) % Lymph % (Auto) 19.8 L (20.0-40.0) % [place] % (Auto) 8.6 (0.0-10.0) % Eos % (Auto) 0.1 (0.0-4.0) % Baso % (Auto) 1.3 (0.0-2.0) % Neut # (Auto) 5.4 (1.8-7.0) K/uL Lymph # (Auto) 1.5 (1.0-4.3) K/uL [place] # (Auto) 0.7 (0.0-0.8) K/uL Eos # (Auto) 0.0 (0.0-0.7) K/uL Baso # (Auto) 0.1 (0.0-0.2) K/uL Sodium 133 (132-148) mmol/L Potassium 3.5 L (3.6-5.2) mmol/L Chloride 97 L (98-107) mmol/L Carbon Dioxide 28 (22-30) mmol/L Anion Gap 12 (10-20) BUN 24 H (9-20) mg/dL Creatinine 1.0 (0.8-1.5) mg/dL Est GFR ( Amer) > 60 Est GFR (Non-Af Amer) > 60 POC Glucose (mg/dL) 362 H (65-110) mg/dL Random Glucose 327 H (75-110) mg/dL Calcium 9.3 (8.6-10.4) mg/dl Phosphorus 3.0 (2.5-4.5) mg/dL Magnesium 2.1 (1.6-2.3) mg/dL Total Bilirubin 0.6 (0.2-1.3) mg/dL AST 20 (17-59) U/L ALT 27 (21-72) U/L Alkaline Phosphatase 59 (38-126) U/L Total Protein 6.1 L (6.3-8.3) g/dL Albumin 3.6 (3.5-5.0) g/dL Globulin 2.5 (2.2-3.9) gm/dL Albumin/Globulin Ratio 1.4 (1.0-2.1) 07/14/18 07/14/18 07/13/18 Range/Units 21:25 07:49 21:19 WBC (4.8-10.8) K/uL RBC (4.40-5.90) Mil/uL Hgb (12.0-18.0) g/dL Hct (35.0-51.0) % MCV (80.0-94.0) fL MCH (27.0-31.0) pg MCHC (33.0-37.0) g/dL RDW (11.5-14.5) % Plt Count (130-400) K/uL MPV (7.2-11.7) fL Neut % (Auto) (50.0-75.0) % Lymph % (Auto) (20.0-40.0) % [place] % (Auto) (0.0-10.0) % Eos % (Auto) (0.0-4.0) % Baso % (Auto) (0.0-2.0) % Neut # (Auto) (1.8-7.0) K/uL Lymph # (Auto) (1.0-4.3) K/uL [place] # (Auto) (0.0-0.8) K/uL Eos # (Auto) (0.0-0.7) K/uL Baso # (Auto) (0.0-0.2) K/uL Sodium (132-148) mmol/L Potassium (3.6-5.2) mmol/L Chloride (98-107) mmol/L Carbon Dioxide (22-30) mmol/L Anion Gap (10-20) BUN (9-20) mg/dL Creatinine (0.8-1.5) mg/dL Est GFR ( Amer) Est GFR (Non-Af Amer) POC Glucose (mg/dL) > 500 H* 335 H 461 H* (65-110) mg/dL Random Glucose (75-110) mg/dL Calcium (8.6-10.4) mg/dl Phosphorus (2.5-4.5) mg/dL Magnesium (1.6-2.3) mg/dL Total Bilirubin (0.2-1.3) mg/dL AST (17-59) U/L ALT (21-72) U/L Alkaline Phosphatase (38-126) U/L Total Protein (6.3-8.3) g/dL Albumin (3.5-5.0) g/dL Globulin (2.2-3.9) gm/dL Albumin/Globulin Ratio (1.0-2.1) 07/13/18 07/13/18 07/13/18 Range/Units 16:18 11:30 07:33 WBC (4.8-10.8) K/uL RBC (4.40-5.90) Mil/uL Hgb (12.0-18.0) g/dL Hct (35.0-51.0) % MCV (80.0-94.0) fL MCH (27.0-31.0) pg MCHC (33.0-37.0) g/dL RDW (11.5-14.5) % Plt Count (130-400) K/uL MPV (7.2-11.7) fL Neut % (Auto) (50.0-75.0) % Lymph % (Auto) (20.0-40.0) % [place] % (Auto) (0.0-10.0) % Eos % (Auto) (0.0-4.0) % Baso % (Auto) (0.0-2.0) % Neut # (Auto) (1.8-7.0) K/uL Lymph # (Auto) (1.0-4.3) K/uL [place] # (Auto) (0.0-0.8) K/uL Eos # (Auto) (0.0-0.7) K/uL Baso # (Auto) (0.0-0.2) K/uL Sodium (132-148) mmol/L Potassium (3.6-5.2) mmol/L Chloride (98-107) mmol/L Carbon Dioxide (22-30) mmol/L Anion Gap (10-20) BUN (9-20) mg/dL Creatinine (0.8-1.5) mg/dL Est GFR ( Amer) Est GFR (Non-Af Amer) POC Glucose (mg/dL) 405 H* 233 H 320 H (65-110) mg/dL Random Glucose (75-110) mg/dL Calcium (8.6-10.4) mg/dl Phosphorus (2.5-4.5) mg/dL Magnesium (1.6-2.3) mg/dL Total Bilirubin (0.2-1.3) mg/dL AST (17-59) U/L ALT (21-72) U/L Alkaline Phosphatase (38-126) U/L Total Protein (6.3-8.3) g/dL Albumin (3.5-5.0) g/dL Globulin (2.2-3.9) gm/dL Albumin/Globulin Ratio (1.0-2.1) Laboratory Results - last 24 hr 07/13/18 07/13/18 07/13/18 07:33 11:30 16:18 WBC RBC Hgb Hct MCV MCH MCHC RDW Plt Count MPV Neut % (Auto) Lymph % (Auto) [place] % (Auto) Eos % (Auto) Baso % (Auto) Neut # (Auto) Lymph # (Auto) [place] # (Auto) Eos # (Auto) Baso # (Auto) Sodium Potassium Chloride Carbon Dioxide Anion Gap BUN Creatinine Est GFR ( Amer) Est GFR (Non-Af Amer) POC Glucose (mg/dL) 320 H 233 H 405 H* Random Glucose Calcium Phosphorus Magnesium Total Bilirubin AST ALT Alkaline Phosphatase Total Protein Albumin Globulin Albumin/Globulin Ratio 07/13/18 07/14/18 07/14/18 21:19 07:49 21:25 WBC RBC Hgb Hct MCV MCH MCHC RDW Plt Count MPV Neut % (Auto) Lymph % (Auto) [place] % (Auto) Eos % (Auto) Baso % (Auto) Neut # (Auto) Lymph # (Auto) [place] # (Auto) Eos # (Auto) Baso # (Auto) Sodium Potassium Chloride Carbon Dioxide Anion Gap BUN Creatinine Est GFR ( Amer) Est GFR (Non-Af Amer) POC Glucose (mg/dL) 461 H* 335 H > 500 H* Random Glucose Calcium Phosphorus Magnesium Total Bilirubin AST ALT Alkaline Phosphatase Total Protein Albumin Globulin Albumin/Globulin Ratio 07/15/18 07/15/18 07/15/18 07:10 07:15 07:15 WBC 7.7 RBC 4.60 Hgb 15.0 Hct 42.0 MCV 91.3 MCH 32.5 H MCHC 35.6 RDW 12.7 Plt Count 151 MPV 7.4 Neut % (Auto) 70.2 Lymph % (Auto) 19.8 L [place] % (Auto) 8.6 Eos % (Auto) 0.1 Baso % (Auto) 1.3 Neut # (Auto) 5.4 Lymph # (Auto) 1.5 [place] # (Auto) 0.7 Eos # (Auto) 0.0 Baso # (Auto) 0.1 Sodium 133 Potassium 3.5 L Chloride 97 L Carbon Dioxide 28 Anion Gap 12 BUN 24 H Creatinine 1.0 Est GFR ( Amer) > 60 Est GFR (Non-Af Amer) > 60 POC Glucose (mg/dL) 362 H Random Glucose 327 H Calcium 9.3 Phosphorus 3.0 Magnesium 2.1 Total Bilirubin 0.6 AST 20 ALT 27 Alkaline Phosphatase 59 Total Protein 6.1 L Albumin 3.6 Globulin 2.5 Albumin/Globulin Ratio 1.4 Critical Care Progress Note - Nutrition Nutrition: Nutrition Category Date Time Status Consistent Carbohydrate [DIET] Diets 07/13/18 Lunch Active Assessment/Plan - Assessment and Plan (Free Text) Plan: Patient admitted to ICU for at risk of respiratory distress. Today speaking normally. NO hoarseness. Patient c/o snoring. -Respiratory distress: resolved -continue all other medications as per primary team -Patient advised to consider C-pap at night 2nd sleep apnea. -h/o smoking and developed COPD, continue bronchodilators -Patient remains hemodynamically stable. - Date & Time Date: 07/14/18 Time: 19:00
[2018-07-14] MEDS ORDERED: (Novolin R) Insulin Human Regular 100 units/ml vial IVP ONE (11:00)
[2018-07-14 16:14] VITALS: RESP 20
[2018-07-14] MEDS: Arformoterol 15 mcg/2 ml Inh Sol INH SCH (20:24)
[2018-07-14] MEDS: Budesonide 0.25 mg/2 ml Inhal Susp UD INH SCH (20:25)
[2018-07-14] MEDS: (Lantus) Insulin Glargine, Recombinant SC SCH (21:56)
[2018-07-14] MEDS ORDERED: (Novolin R) Insulin Human Regular 100 units/ml vial SC ONE (22:06)
--- NOTE | 2018-07-15 07:19 | CP.PCM.PN ---
Subjective - Date & Time of Evaluation Date of Evaluation: 07/15/18 Time of Evaluation: 07:18 - Subjective Subjective: Progress note for Dr. Hearn. Patient seen and examined at bedside. Reports continued snorting. Walking around helps with symptoms. Denies headache, chest pain, nausea, vomiting, fever, chills. Objective - Vital Signs/Intake and Output Vital Signs (last 24 hours): Temp Pulse Resp BP Pulse Ox 97.4 F L 99 H 20 102/68 96 07/14/18 23:18 07/14/18 23:18 07/14/18 23:18 07/14/18 23:18 07/14/18 23:18 Intake and Output: 07/15/18 07/15/18 06:59 18:59 Intake Total 450 Balance 450 - Medications Medications: Current Medications Albuterol/Ipratropium (Duoneb 3 Mg/0.5 Mg (3 Ml) Ud) 3 ml INH RQ4 PRN PRN Reason: Shortness of Breath Arformoterol Tartrate (Brovana) 1 mcg INH RQ12 [facility] Last Admin: 07/14/18 20:24 Dose: 1 mcg Budesonide (Pulmicort Respules) 0.25 mg INH RQ12 [facility] Last Admin: 07/14/18 20:25 Dose: 0.25 mg Chlordiazepoxide (Librium) 25 mg PO Q8 [facility] Last Admin: 07/15/18 05:47 Dose: 25 mg Dextrose (Dextrose 50% Inj) 0 ml IV STAT PRN; Protocol PRN Reason: Hypoglycemia Protocol Dextrose (Glutose 15) 0 gm PO ONCE PRN; Protocol PRN Reason: Hypoglycemia Protocol Enoxaparin Sodium (Lovenox) 40 mg SC DAILY [facility] Last Admin: 07/14/18 10:05 Dose: 40 mg Folic Acid (Folic Acid) 1 mg PO DAILY [facility] Last Admin: 07/14/18 10:04 Dose: 1 mg Glucagon (Glucagen Diagnostic Kit) 0 mg IM STAT PRN; Protocol PRN Reason: Hypoglycemia Protocol Dextrose (Dextrose 5% In Water 1000 Ml) 1,000 mls @ 0 mls/hr IV .Q0M PRN; Protocol PRN Reason: Hypoglycemia Protocol Insulin Glargine (Lantus) 10 unit SC HS [facility] Last Admin: 07/14/18 21:56 Dose: 10 units Insulin Human Regular (Novolin R) 0 unit SC ACHS [facility]; Protocol Last Admin: 07/14/18 22:52 Dose: Not Given Loratadine (Claritin) 10 mg PO DAILY [facility] Last Admin: 07/14/18 10:05 Dose: 10 mg Multivitamins/Vitamin C (Multi-Delyn Liquid) 5 ml PO DAILY [facility] Last Admin: 07/14/18 10:05 Dose: 5 ml Pantoprazole Sodium (Protonix Inj) 40 mg IVP DAILY [facility] Last Admin: 07/14/18 10:05 Dose: 40 mg Prednisone (Prednisone Tab) 40 mg PO DAILY [facility] Last Admin: 07/14/18 10:04 Dose: 40 mg Thiamine HCl (Vitamin B1 Tab) 100 mg PO DAILY [facility] Last Admin: 07/14/18 10:04 Dose: 100 mg - Labs Labs: 07/14/18 06:10 07/14/18 06:14 PT 11.5 SECONDS (9.7-12.2) 07/12/18 22:45 INR 1.1 07/12/18 22:45 APTT 30.3 SECONDS (21-34) 07/12/18 22:45 - Constitutional Appears: No Acute Distress - Head Exam Head Exam: ATRAUMATIC, NORMOCEPHALIC - Eye Exam Eye Exam: EOMI, Normal appearance, PERRL - ENT Exam ENT Exam: Mucous Membranes Moist, Normal Oropharynx - Neck Exam Neck Exam: Full ROM, Normal Inspection - Respiratory Exam Respiratory Exam: Clear to Ausculation Bilateral, NORMAL BREATHING PATTERN. absent: Rales, Rhonchi, Wheezes, Respiratory Distress - Cardiovascular Exam Cardiovascular Exam: REGULAR RHYTHM, +S1, +S2. absent: Murmur - GI/Abdominal Exam GI & Abdominal Exam: Soft. absent: Distended, Firm, Guarding, Rigid, Tenderness, Normal Bowel Sounds - Extremities Exam Extremities Exam: Full ROM, Normal Inspection. absent: Calf Tenderness, Normal Capillary Refill, Tenderness - Neurological Exam Neurological Exam: Alert, Awake, CN II-XII Intact, Normal Gait, Oriented x3 Neuro motor strength exam: Left Upper Extremity: 5, Right Upper Extremity: 5, Left Lower Extremity: 5, Right Lower Extremity: 5 - Psychiatric Exam Psychiatric exam: Normal Affect, Normal Mood - Skin Skin Exam: Dry, Intact, Normal Color, Warm Assessment and Plan - Assessment and Plan (Free Text) Plan: Upper Airway Stenosis CT neck soft tissue 07/12/18: Diffuse soft tissue swelling in the oropharynx extending to the level of the larynx associated with severe stenosis and occlusion of the upper airway of uncertain etiology. No definite evidence of discrete mass lesion in this noncontrast study. ENT Dr Hurtado Consulted -felxible laryngoscopy on 07/13/18: no masses or lesions noted. No airway obstruction noted. -f/u recs Prednisone 40mg daily Duoneb Q4H PRN Brovana 1mcg Q12H Echo: LVEF 77%, normal LV systolic function, Diastolic dysfunction. Trace TR ETOH Abuse Librium 25 PO Q12H Thiamine, Multivit, Folate Neurochecks CIWA Protocol DM f/u A1C ISS hypoglycemia protocol HTN Labetalol 20 given once in ED monitor PPx Lovenox 40 SC daily Protonix 40mg daily Aspiration precautions SCDs Case discussed with Dr. Dhiraj Samuels, PGY-1
[2018-07-15 07:54] LABS: ALB/GLOB RATIO 1.4 (1.0-2.1); ALBUMIN 3.6 g/dL (3.5-5.0); ALT/SGPT 27 U/L (21-72); AST/SGOT 20 U/L (17-59); BLOOD UREA NITROGEN 24 mg/dL (9-20); CALCIUM 9.3 mg/dl (8.6-10.4); GFR NON-AFRICAN AMERICAN > 60
[2018-07-15 07:57] LABS: BASO # 0.1 K/uL (0.0-0.2); BASO % 1.3 % (0.0-2.0); EOS % 0.1 % (0.0-4.0); LYMPH # 1.5 K/uL (1.0-4.3); LYMPH % 19.8 % (20.0-40.0); MEAN CELL VOLUME 91.3 fL (80.0-94.0); MEAN CORPUSCULAR HEMOGLOBIN 32.5 pg (27.0-31.0); MEAN CORPUSCULAR HGB CONC 35.6 g/dL (33.0-37.0); MEAN PLATELET VOLUME 7.4 fL (7.2-11.7); MONO # 0.7 K/uL (0.0-0.8); MONO % 8.6 % (0.0-10.0); NEUT # 5.4 K/uL (1.8-7.0); NEUT % 70.2 % (50.0-75.0); RBC 4.6 Mil/uL (4.40-5.90); RED CELL DISTRIBUTION WIDTH 12.7 % (11.5-14.5); WHITE BLOOD COUNT 7.7 K/uL (4.8-10.8)
[2018-07-15 08:04] VITALS: BP 127/86; PULSE 80; TEMP 97.7; O2SAT 97
[2018-07-15] MEDS: (Novolin R) Insulin Human Regular 100 units/ml vial SC SCH ×2 (08:39→12:00)
[2018-07-15] MEDS: Arformoterol 15 mcg/2 ml Inh Sol INH SCH (09:03)
[2018-07-15] MEDS: Budesonide 0.25 mg/2 ml Inhal Susp UD INH SCH (09:04)
[2018-07-15] MEDS ORDERED: Potassium Chloride 20 mEq/15 ml LIQ UD PO ONE (09:27)
--- NOTE | 2018-07-15 11:11 | CP.PCM.DIS ---
Provider - Provider Date of Admission: 07/12/18 22:22 Attending physician: Ru Hearn Jr, MD Consults: 07/12/18 21:32 Physician Consult Stat Comment: *ALREADY CALLED Consulting Provider: Lester Hansen Consulting Physician: Lester Hansen Reason for Consult: UPPER AIRWAY DISEASE Additional Comments: *ALREADY CALLED 07/12/18 22:09 Otolaryngology Consult Routine Consulting Provider: Hernan Hurtado Consulting Physician: Hernan Hurtado Reason for Consult: Upper airway stenosis Time Spent in preparation of Discharge (in minutes): 40 Diagnosis - Discharge Diagnosis (1) Narrowing of airway Status: Acute (2) Alcohol dependence Status: Acute (3) Diabetes Status: Acute Hospital Course - Lab Results Lab Results: Micro Results 07/13/18 06:05 Naris MRSA Culture (Admit) - Final MRSA NOT DETECTED Most Recent Lab Values WBC 7.7 K/uL (4.8-10.8) 07/15/18 07:15 RBC 4.60 Mil/uL (4.40-5.90) 07/15/18 07:15 Hgb 15.0 g/dL (12.0-18.0) 07/15/18 07:15 Hct 42.0 % (35.0-51.0) 07/15/18 07:15 MCV 91.3 fL (80.0-94.0) 07/15/18 07:15 MCH 32.5 pg (27.0-31.0) H 07/15/18 07:15 MCHC 35.6 g/dL (33.0-37.0) 07/15/18 07:15 RDW 12.7 % (11.5-14.5) 07/15/18 07:15 Plt Count 151 K/uL (130-400) 07/15/18 07:15 MPV 7.4 fL (7.2-11.7) 07/15/18 07:15 Neut % (Auto) 70.2 % (50.0-75.0) 07/15/18 07:15 Lymph % (Auto) 19.8 % (20.0-40.0) L 07/15/18 07:15 [place] % (Auto) 8.6 % (0.0-10.0) 07/15/18 07:15 Eos % (Auto) 0.1 % (0.0-4.0) 07/15/18 07:15 Baso % (Auto) 1.3 % (0.0-2.0) 07/15/18 07:15 Neut # (Auto) 5.4 K/uL (1.8-7.0) 07/15/18 07:15 Lymph # (Auto) 1.5 K/uL (1.0-4.3) 07/15/18 07:15 [place] # (Auto) 0.7 K/uL (0.0-0.8) 07/15/18 07:15 Eos # (Auto) 0.0 K/uL (0.0-0.7) 07/15/18 07:15 Baso # (Auto) 0.1 K/uL (0.0-0.2) 07/15/18 07:15 PT 11.5 SECONDS (9.7-12.2) 07/12/18 22:45 INR 1.1 07/12/18 22:45 APTT 30.3 SECONDS (21-34) 07/12/18 22:45 Puncture Site Rra 07/12/18 22:55 pCO2 36 mm/Hg (35-45) 07/12/18 22:55 pO2 85 mm/Hg (80-100) 07/12/18 22:55 HCO3 23.3 mmol/L (21-28) 07/12/18 22:55 ABG pH 7.38 (7.35-7.45) 07/12/18 22:55 ABG Total CO2 22.4 mmol/L (22-28) 07/12/18 22:55 ABG Base Excess -3.3 mmol/L (-2.0-3.0) L 07/12/18 22:55 [place] Test Pos 07/12/18 22:55 Sodium 133 mmol/L (132-148) 07/15/18 07:15 Potassium 3.5 mmol/L (3.6-5.2) L 07/15/18 07:15 Chloride 97 mmol/L (98-107) L 07/15/18 07:15 Carbon Dioxide 28 mmol/L (22-30) 07/15/18 07:15 Anion Gap 12 (10-20) 07/15/18 07:15 BUN 24 mg/dL (9-20) H 07/15/18 07:15 Creatinine 1.0 mg/dL (0.8-1.5) 07/15/18 07:15 Est GFR ( Amer) > 60 07/15/18 07:15 Est GFR (Non-Af Amer) > 60 07/15/18 07:15 POC Glucose (mg/dL) 362 mg/dL (65-110) H 07/15/18 07:10 Random Glucose 327 mg/dL (75-110) H 07/15/18 07:15 Hemoglobin A1c 8.3 % (4.2-6.5) H 07/13/18 06:06 Calcium 9.3 mg/dl (8.6-10.4) 07/15/18 07:15 Phosphorus 3.0 mg/dL (2.5-4.5) 07/15/18 07:15 Magnesium 2.1 mg/dL (1.6-2.3) 07/15/18 07:15 Total Bilirubin 0.6 mg/dL (0.2-1.3) 07/15/18 07:15 AST 20 U/L (17-59) 07/15/18 07:15 ALT 27 U/L (21-72) 07/15/18 07:15 Alkaline Phosphatase 59 U/L (38-126) 07/15/18 07:15 Total Protein 6.1 g/dL (6.3-8.3) L 07/15/18 07:15 Albumin 3.6 g/dL (3.5-5.0) 07/15/18 07:15 Globulin 2.5 gm/dL (2.2-3.9) 07/15/18 07:15 Albumin/Globulin Ratio 1.4 (1.0-2.1) 07/15/18 07:15 Thyroxine (T4) 8.93 ug/dL (5.5-11.0) 07/13/18 09:17 Total T3 1.54 nmol/L (1.49-2.60) 07/13/18 09:17 TSH 3rd Generation 0.40 mIU/L (0.46-4.68) L 07/13/18 09:17 Alcohol, Quantitative 238 mg/dl (0-10) H 07/12/18 22:45 HIV 1&2 Ag/Ab, 4th Gen Nonreactive (Nonreactive) 07/13/18 09:43 - Hospital Course Hospital Course: On admission: 63 M returns to ER for admission for upper airway stenosis previously seen on CT. Patient is s/p eval on 07/10/18 for worsening choking episodes for the past several months present for one year. CT report showed positive upper airway stenosis. At that time he left [facility] because of family obligations. Denies new symptoms since initial eval. Patient states "it gets so bad I feels like I am choking", worse at night, says he "constantly snorts like a pig" and reports sensation of foreign body. Hospital Course: Patient was admitted for Upper Airway Stenosis. CT neck soft tissue on 07/12/18 s howed Diffuse soft tissue swelling in the oropharynx extending to the level of the larynx associated with severe stenosis and occlusion of the upper airway of uncertain etiology. No definite evidence of discrete mass lesion in this noncontrast study. Patient was treated with steroids and observed in the ICU. ENT, Dr. Hurtado was consulted. Patient had a felxible laryngoscopy on 07/13/[address] Hurtado which showed no masses or lesions noted. No airway obstruction noted. Patient also had an echo which showed LVEF 77%, normal LV systolic function, Diastolic dysfunction. Trace TR. While hospitalized, patient was treated for ETOH Abuse with Libirum taper, Thiamine, Multivitamin, and Folate. Patient was found to be diabetic with Hemoglobin A1c of 8.3. He was treated with sliding scale insulin while inpatient and discharged with script for metformin. Please note, after patient was discharged, nurse informed me that he had found the patient drinking beer in his coffee mug. Reportedly, patient had snuck in beer into the hospital in an iced tea bottle. Discharge summary: Patient is stable for discharge as per Dr. Hearn. You must follow up with Dr. Hearn within one week. You must follow up with Dr. Hurtado within 2 weeks. You will be discharged with the following prescription: Metformin 500mg three times a day with meals. You must take the following over the counter medications: Folic acid 1mg daily Thiamine 100mg daily Multivitamin 1 tablet daily You must stop drinking alcohol. Return to the emergency room for new or worsening symptoms. Discharge Exam - Head Exam Head Exam: ATRAUMATIC, NORMOCEPHALIC - Additional Findings Additional findings: - Constitutional Appears: No Acute Distress - Head Exam Head Exam: ATRAUMATIC, NORMOCEPHALIC - Eye Exam Eye Exam: EOMI, Normal appearance, PERRL - ENT Exam ENT Exam: Mucous Membranes Moist, Normal Oropharynx - Neck Exam Neck Exam: Full ROM, Normal Inspection - Respiratory Exam Respiratory Exam: Clear to Ausculation Bilateral, NORMAL BREATHING PATTERN. absent: Rales, Rhonchi, Wheezes, Respiratory Distress - Cardiovascular Exam Cardiovascular Exam: REGULAR RHYTHM, +S1, +S2. absent: Murmur - GI/Abdominal Exam GI & Abdominal Exam: Soft. absent: Distended, Firm, Guarding, Rigid, Tenderness, Normal Bowel Sounds - Extremities Exam Extremities Exam: Full ROM, Normal Inspection. absent: Calf Tenderness, Normal Capillary Refill, Tenderness - Neurological Exam Neurological Exam: Alert, Awake, CN II-XII Intact, Normal Gait, Oriented x3 Neuro motor strength exam: Left Upper Extremity: 5, Right Upper Extremity: 5, Left Lower Extremity: 5, Right Lower Extremity: 5 - Psychiatric Exam Psychiatric exam: Normal Affect, Normal Mood - Skin Skin Exam: Dry, Intact, Normal Color, Warm Discharge Plan - Discharge Medications Prescriptions: metFORMIN [glucOPHAGE] 500 mg PO TID #90 tab - Follow Up Plan Disposition: HOME/ ROUTINE Instructions: Alcohol Abuse and Alcoholism (DC), Bacterial Upper Respiratory Infection, Adult (DC), Metformin Additional Instructions: Patient is stable for discharge as per Dr. Hearn. You must follow up with Dr. Hearn within one week. You must follow up with Dr. Hurtado within 2 weeks. You will be discharged with the following prescription: Metformin 500mg three times a day with meals. You must take the following over the counter medications: Folic acid 1mg daily Thiamine 100mg daily Multivitamin 1 tablet daily You must stop drinking alcohol. Return to the emergency room for new or worsening symptoms. Referrals: Hernan Hurtado MD [Staff Provider] - Ru Hearn Jr., MD [Medical Doctor] -
[2018-07-15] MEDS: Enoxaparin 40 mg Syringe SC SCH (11:17)
[2018-07-15] MEDS: Multiple Vitamins Oral Solution PO SCH (11:22)
[2018-07-15] MEDS ORDERED: Pneumococcal 23-Valent Vaccine IM ONE (12:28)
== END 2018-07-15 13:47 | disposition home or self-care (01) | DRG 156 ==
LOC: C.ER 20:29 → C.9I 22:22 → C.3T 07-14 11:47
PROVIDERS: ADMIT Internal Medicine; ATTEND Internal Medicine
PROC: 0CJS8ZZ Inspection of Larynx, Via Natural or Artificial Opening Endoscopic (ICD-10-PCS; principal; 2018-07-13)
DX: J38.6 Stenosis of larynx (principal); J39.8 Other specified diseases of upper respiratory tract; J39.2 Other diseases of pharynx; I11.9 Hypertensive heart disease without heart failure; E11.65 Type 2 diabetes mellitus with hyperglycemia; F10.20 Alcohol dependence, uncomplicated; I51.7 Cardiomegaly; I77.819 Aortic ectasia, unspecified site; F17.290 Nicotine dependence, other tobacco product, uncomplicated; Z79.84 Long term (current) use of oral hypoglycemic drugs